=== PATIENT | male | born 1940 | race Caucasian/White ===

== ENCOUNTER 2017-03-14 09:29 | Day surgery (SDC) | payer OTHER, SELFPAY ==
[~2017-03-14] VITALS: Ht 182.9 cm; Wt 93.2 kg
[~2017-03-14 09:29] MED LIST: ASPI325 PO; EXCEDRIN MIGRAINE; FISH OIL + D31 EACH PO; Hair, Skin & N1 EACH; IBUP600 PO; OXYACE5T PO; Prednisone20 MG PO; RXOXYACE PO; TAMS.4ER PO
== END 2017-03-14 11:48 | disposition home or self-care (01) ==
LOC: ORSCSDS 09:29
PROVIDERS: Internal Medicine Gastroenterology
PROC: 0DBK8ZX Excision of Ascending Colon, Via Natural or Artificial Opening Endoscopic, Diagnostic (ICD-10-PCS; principal; 2017-03-14 10:30)
DX: Z12.11 Encounter for screening for malignant neoplasm of colon (principal); D12.2 Benign neoplasm of ascending colon; Z86.010 Personal history of colon polyps; K57.30 Diverticulosis of large intestine without perforation or abscess without bleeding; J44.9 Chronic obstructive pulmonary disease, unspecified; Z87.891 Personal history of nicotine dependence; Z79.82 Long term (current) use of aspirin
CPT/HCPCS: 88305; J7120